=== PATIENT | male | born 1940 | race Caucasian/White ===

== ENCOUNTER 2018-01-25 09:09 | Day surgery (SDC) | payer MEDICARE, BC ==
[~2018-01-25] VITALS: Ht 172.7 cm; Wt 99.4 kg
[~2018-01-25 09:09] MED LIST: CEPHALEXIN500 M1 PO; DUO-KAPS1 CAP PO
[2018-01-25 09:54] VITALS: BP 117/78; PULSE 94; TEMP 97.5
[2018-01-25] MEDS ORDERED: CALCIUM 600MG+D1 TAB PO (10:07)
[2018-01-25] MEDS ORDERED: DIOVAN HCT 25 M1 TA1 PO (10:09)
[2018-01-25 11:30] VITALS: BP 122/60; PULSE 74; TEMP 97.4
[2018-01-25 11:45] VITALS: BP 113/64; PULSE 74
[2018-01-25 12:00] VITALS: BP 113/66; PULSE 71
== END 2018-01-25 12:15 | disposition home or self-care (01) ==
LOC: SDCO 09:09
DX: Z12.11 Encounter for screening for malignant neoplasm of colon (principal); D12.2 Benign neoplasm of ascending colon; K57.30 Diverticulosis of large intestine without perforation or abscess without bleeding; I10 Essential (primary) hypertension; Z86.010 Personal history of colon polyps
CPT/HCPCS: OP; J2250; J3010; J7030

== ENCOUNTER → 2021-01-20 | Outpatient (CLI) | payer MEDICARE, BC ==
--- NOTE | 2021-01-17 10:27 | NUR ---
LMOM WITH CALL BACK NUMBER.
[~2021-01-20] VITALS: Ht 172.7 cm; Wt 91.5 kg
[~2021-01-20] MED LIST changes: +CALCIUM 600MG+D1 TAB PO; +DIOVAN HCT 25 M1 TA1 PO; +GLUCOPHAGE500 MG/TAB PO
[2021-01-20 09:23] VITALS: BP 132/67; PULSE 75
[2021-01-20 10:15] VITALS: BP 144/74; PULSE 71
== END ==
LOC: COL.RAD 08:56
DX: C44.329 Squamous cell carcinoma of skin of other parts of face (principal); R59.9 Enlarged lymph nodes, unspecified
CPT/HCPCS: 32140

== ENCOUNTER → 2021-02-03 | Outpatient (CLI) | payer MEDICARE, BC | LOC: COL.VAS 12:11 | DX: I65.23 Occlusion and stenosis of bilateral carotid arteries (principal) ==

== ENCOUNTER → 2021-08-31 | Outpatient (CLI) | payer MEDICARE, BC | LOC: COL.VAS 08-25 12:45 | DX: I65.23 Occlusion and stenosis of bilateral carotid arteries (principal) ==

== ENCOUNTER → 2022-02-24 | Outpatient (CLI) | payer MEDICARE, BC | LOC: COL.VAS 10:22 | DX: M79.605 Pain in left leg (principal); M79.89 Other specified soft tissue disorders; M79.604 Pain in right leg ==

== ENCOUNTER → 2022-12-28 | Outpatient (CLI) | payer MEDICARE, BC | LOC: COL.RAD 14:04 | DX: I65.23 Occlusion and stenosis of bilateral carotid arteries (principal) ==